=== PATIENT | male | born 1965 | race Caucasian/White ===

== ENCOUNTER 2016-06-02 07:50 | Day surgery (SDC) | payer OTHER ==
[2016-05-26 12:31] VITALS: BMI 45.0
--- NOTE | 2016-05-26 13:26 | PAT Medication Instructions ---
Service Date May 26, 2016. Current Home Medication List Albuterol Hfa (Ventolin Hfa), 2-4 PUFFS INH Q6H PRN for Shortness of Breath Aspirin (Aspirin Ec), 81 MG PO QAM Atorvastatin (Lipitor), 40 MG PO QAM Diltiazem Hcl (Cardizem), 120 MG PO QAM Pantoprazole (Protonix), 40 MG PO HS Warfarin Sodium (Warfarin Sodium), 2 TAB PO QPM Warfarin Sodium (Warfarin Sodium), 1 TAB PO QPM Medication Instructions For Your Scheduled Surgery - Check with surgeon/cardiology/prescribing physician: Warfarin Sodium (Warfarin Sodium), 2 TAB PO QPM Warfarin Sodium (Warfarin Sodium), 1 TAB PO QPM Aspirin (Aspirin Ec), 81 MG PO QAM - Take the following medications the morning of surgery with a sip of water: Diltiazem Hcl (Cardizem), 120 MG PO QAM Atorvastatin (Lipitor), 40 MG PO QAM Albuterol Hfa (Ventolin Hfa), 2-4 PUFFS INH Q6H PRN for Shortness of Breath ( bring with you to hospital morning of surgery) - Take the following medications as scheduled the night before surgery: Pantoprazole (Protonix), 40 MG PO HS Albuterol Hfa (Ventolin Hfa), 2-4 PUFFS INH Q6H PRN for Shortness of Breath If you have any questions please call us at [phone] (Bryanna Cosme PA-C) or [phone] or [phone]
[2016-05-26 14:04] LABS: BASO % 0.5 %; BASO ABS # 0.05 K/uL (0-0.2); COMPLETE YES; HEMATOCRIT 52.7 % (42-52); IG% 0.4 %; LYMPH % 32.2 %; MEAN CELL VOLUME 90.4 fL (80-100); MEAN CORPUSCULAR HEMOGLOBIN 31.7 pg (25-34); MEAN CORPUSCULAR HGB CONC 35.1 g/dl (32-36); MEAN PLATELET VOLUME 10.2 fL (7.4-10.4); MONO % 5.1 %; NEUT % 59.8 %; PLATELET COUNT 228 K/uL (130-400); RED BLOOD COUNT 5.83 M/uL (4.7-6.1); WHITE BLOOD COUNT 10.56 K/uL (4.8-10.8)
[2016-05-26 14:13] LABS: INR 1.9 (0.9-1.1); PARTIAL THROMBOPLASTIN RATIO 1.3; PROTHROMBIN TIME (PATIENT) 20.6 SECONDS (9.0-12.0)
[2016-05-26 14:18] LABS: URINE APPEARANCE CLEAR (CLEAR); URINE BILIRUBIN NEG (NEG); URINE COLOR YELLOW; URINE NITRITE NEG (NEG); URINE PH 6.5 (4.5-7.5); URINE SPECIFIC GRAVITY 1.008 (1.000-1.030); UROBILINOGEN NEG (NEG)
[2016-05-26 14:24] LABS: MANUAL MICROSCOPIC REQUIRED? NO; REVIEW REQ? NO
[2016-05-26 14:26] LABS: CREATININE 0.95 mg/dl (0.60-1.40)
--- NOTE | 2016-06-01 15:40 | HISTORY & PHYSICAL EXAMINATION ---
DATE OF ADMISSION: 06/02/2016 HISTORY OF PRESENT ILLNESS: The patient presents for left shoulder arthroscopy, rotator cuff repair. The patient is a 5 foot 10, 297, BMI of 42.61, white male with complaints of ongoing pain attributable to his left shoulder. He has been nonresponsive to conservative therapy including physical therapy, anti-inflammatories, relative rest, activity modification, injections, presents with exam consistent that of a torn rotator cuff. The patient is a 50-year-old white male. PAST MEDICAL HISTORY: Significant for hypercholesterolemia, sleep apnea, asthma, previous pulmonary embolus, irregular heartbeat, hepatitis B. FAMILY HISTORY: Otherwise unremarkable and noncontributory. SOCIAL HISTORY: The patient relates smoking up until 2016, stopped smoking in 2016. PAST SURGICAL HISTORY: Significant for previous right rotator cuff shoulder surgery, cholecystectomy, ACL, right knee tendinitis, right elbow, and heart catheterization. ALLERGIES: None. MEDICATIONS: Include albuterol inhaler as needed, Protonix 40 mg p.o. daily, Lipitor 40 mg p.o. daily, Coumadin alternating dose of 7 mg and 7.5 mg every other day, aspirin 81 mg, Cardizem 120 mg p.o. daily. Past medical history is otherwise unremarkable. See history of present illness for pertinent positives. PHYSICAL EXAMINATION: GENERAL: Reveals a very pleasant male with ongoing pain about his shoulder. He has been nonresponsive to conservative care presents today for arthroscopic evaluation. HEENT: Otherwise unremarkable, atraumatic, normocephalic. HEART: Regular at 70 beats per minute. No murmurs are noted. LUNGS: Clear. No rales, rhonchi, or wheezes noted. ABDOMEN: Soft, nontender, nondistended. Bowel sounds are present in all 4 quadrants. RECTAL: No rectal examination was performed. MUSCULOSKELETAL: Consistent with that of the left shoulder pain with rotator cuff tear and weakness. PLAN: For arthroscopy, arthroscopic rotator cuff repair, arthroscopic acromioplasty, possible distal clavicle excision pending findings at time of surgery, postoperative pain management, DVT prophylaxis, antibiotics as noted above.
[~2016-06-02] VITALS: Ht 177.8 cm; Wt 141.5 kg
--- NOTE | 2016-06-02 06:47 | History & Physical Bridge Note ---
H&P Re-Evaluation Bridge Note: I have examined the patient, reviewed the History & Physical and in the interval since the performance of the History & Physical I have noted the following changes of clinical significance: No changes noted
[~2016-06-02 07:50] MED LIST: ASPI81TA28 PO; ATOR-24 PO; CEFAZOLIN 3000 MG/65 ML D5W IV SCH; DILT120T8 PO; LACTATED RINGER'S 1000ML 1,000 ML IV SCH; PANT40TA PO; VNTHFA/IN INH; WARF-246 PO; WARF4TAB44 PO
[2016-06-02 08:10] VITALS: BP 111/70; PULSE 76; TEMP 36.6; O2SAT 94; BMI 45.0
[2016-06-02] MEDS ORDERED: ROPIVACAINE 0.5% 5 MG/ML 30 ML VIAL ONE (08:17)
[2016-06-02 08:20] VITALS: BP 111/70; PULSE 76; TEMP 36.6; O2SAT 94; Ht 177.8 cm; Wt 141.5 kg
[2016-06-02 08:49] LABS: INR 1.1 (0.9-1.1); PROTHROMBIN TIME (PATIENT) 11.4 SECONDS (9.0-12.0)
[2016-06-02] MEDS ORDERED: SUCCINYLCHOLINE CHLORIDE 20 MG/ML 10 ML VIAL IV ONE (09:20)
[2016-06-02] MEDS ORDERED: MIDAZOLAM HCL 1 MG/ML 2ML VIAL ONE ×2 (09:20→09:21)
[2016-06-02] MEDS ORDERED: ONDANSETRON INJ 2 MG/ML 2 ML VIAL ONE (09:20)
[2016-06-02] MEDS ORDERED: GLYCOPYRROLATE INJ 0.2 MG/ML VIAL ONE (09:20)
[2016-06-02] MEDS ORDERED: ROCURONIUM BROMIDE 10 MG/ML 5 ML VIAL ONE (09:20)
[2016-06-02] MEDS ORDERED: NEOSTIGMINE METHYLSULFATE 5 MG/5 ML SYR ONE (09:20)
[2016-06-02] MEDS ORDERED: PROPOFOL IV EMULSION 10 MG/ML 20 ML VIAL IV ONE (09:20)
[2016-06-02] MEDS ORDERED: DEXAMETHASONE SOD INJ 4 MG/ML VIAL ONE (09:20)
[2016-06-02] MEDS ORDERED: LIDOCAINE HCL 2% 2 ML VIAL (20MG/ML) ONE ×2 (09:20→12:38)
[2016-06-02] MEDS ORDERED: PHENYLEPHRINE HCL INJ 10 MG/ML VIAL ONE (09:20)
[2016-06-02] MEDS ORDERED: EpHEDrine SULFATE INJ 50 MG/ML AMP ONE (09:20)
[2016-06-02] MEDS ORDERED: FENTANYL CITRATE INJ 50 MCG/1 ML 2 ML VIAL ONE ×2 (09:20→09:21)
[2016-06-02] MEDS ORDERED: KETOROLAC TROMETHAMINE 30 MG/ML VIAL IV. PRN ×2 (10:15→12:30)
[2016-06-02] MEDS ORDERED: THROMBIN FOR SOLN 20000 UNIT KIT ONE (10:15)
[2016-06-02] MEDS ORDERED: ATROPINE SULFATE 0.1 MG/ML 5ML SYR IV PRN (10:15)
[2016-06-02] MEDS ORDERED: LABETALOL HCL IV 5 MG/ML 20ML IV PRN (10:15)
[2016-06-02] MEDS ORDERED: ONDANSETRON INJ 2 MG/ML 2 ML VIAL IV PRN ×2 (10:15→12:30)
[2016-06-02] MEDS ORDERED: BACITRACIN 50000 UNIT VIAL ONE (10:15)
[2016-06-02] MEDS ORDERED: FENTANYL CITRATE INJ 50 MCG/1 ML 2 ML VIAL IV PRN (10:15)
--- NOTE | 2016-06-02 12:14 | [facility] Post Operative Brief Note ---
Immediate Operative Summary Operative Date Jun 02, 2016. Pre-Operative Diagnosis tear rotator cuff AC djd impingement syndrome left shoulder Post-Operative Diagnosis same Procedure(s) Performed Left Shoulder Arthroscopic Subacromial Decompression, Distal Clavicle Excision, Rotator Cuff Repair Surgeon Dr. Kenton Wolf Miller Apprentice Surgeon(s) Rayshawn Benson PA-C Estimated Blood Loss 5cc Findings tear rotator cuff AC djd impingement syndrome Specimens none Complication(s) None Disposition Recovery Room / PACU
[2016-06-02] MEDS ORDERED: ACETAMINOPHEN 325 MG TAB PO PRN (12:30)
[2016-06-02] MEDS ORDERED: MoRPHine SULFATE 10 MG/ML CARP/VIAL IV PRN (12:30)
[2016-06-02] MEDS ORDERED: MoRPHine SULFATE 4 MG/ML 1 ML CARP\\VIAL IV PRN (12:30)
[2016-06-02] MEDS ORDERED: OXYCODONE HCL IR 5 MG TAB (IMMEDIATE RELEASE) PO PRN ×2 (12:30)
[2016-06-02] MEDS ORDERED: MoRPHine SULFATE 2 MG/ML CARP IV PRN (12:30)
[2016-06-02] MEDS ORDERED: OXYC-57 PO (12:31)
--- NOTE | 2016-06-02 12:34 | OPERATIVE REPORT ---
DATE OF OPERATION: 06/02/2016 PREOPERATIVE DIAGNOSES: Torn rotator cuff left shoulder, acromioclavicular degenerative joint disease, impingement syndrome. POSTOPERATIVE DIAGNOSIS: Same. PROCEDURE: Arthroscopy, arthroscopic acromioplasty, arthroscopic distal clavicle excision, arthroscopic repair of rotator cuff utilizing a double row technique 4.5 Healicoil, 4.5 footprint. SURGEON: Dr. Wolf. MACHINE FILLER SERVICER: Dr. Rayshawn Benson, who was necessary for prepping, draping, positioning, suture management and wound closure and was necessary for the case. ESTIMATED BLOOD LOSS: 5 mL. COMPLICATIONS: None. HISTORY OF PRESENT ILLNESS: The patient is a very pleasant 50-year-old male with complaints of ongoing pain attributed to his left shoulder. He has been nonresponsive to conservative therapy including physical therapy, anti-inflammatories, relative rest, activity modification and he presents for arthroscopic evaluation. DESCRIPTION OF PROCEDURE: After proper prepping and draping the left shoulder region, arthroscopic examination beginning in the region of the glenohumeral joint revealed the labrum to be intact. No evidence of labral tear was noted. Articular cartilage was noted to be in satisfactory and excellent condition. There was a full thickness rotator cuff tear measuring approximately 2 x 2 cm. Standard subacromial decompression was performed. Anterior inferior acromioplasty performed from changing morphology from a type 3 acromion to a type 1 acromion. Distal clavicle 1 cm was excised due AC joint DJD, rotator cuff having to mobilize and repaired in a double row technique utilizing a double-loaded 4.5 Healicoil and a footprint anchor. The rotator cuff tear repair was back in excellent condition and position. Subsequently, the skin was closed with 4-0 nylon. Sterile compression dressing was placed. The patient was taken to recovery room in stable condition. I attest to the content of the Intraoperative Record and any orders documented therein. Any exceptio ns are noted below.
--- NOTE | 2016-06-02 12:37 | Discharge Instructions ---
Discharge Instructions Date of Service Jun 02, 2016. Visit Reason for Visit: Left Shoulder Ac Jt Arthritis, Rotator Cuff Tear, Discharge Discharge Diagnosis / Problem: Left Shoulder AC Joint Arthritis/Rotator Cuff Tear Discharge Goals Goal(s): Decrease discomfort, Improve function Activity Recommendations Activity Limitations: per Instructions/Follow-up section Anesthesia . Post Anesthesia Instructions: If you have had General Anesthesia or IV Sedation: * Do not drive today. * Resume driving when surgeon permits. * Do not make important decisions or sign legal documents today. * Call surgeon for: 1. Temperature elevations greater than 101 degrees F. 2. Uncontrollable pain. 3. Excessive bleeding. 4. Persistent nausea and vomiting. 5. Medication intolerance (nausea, vomiting or rash). * For nausea and vomiting use only clear liquids such as: tea, soda, bouillon until nausea subsides, then gradually increase diet as tolerated. * If you have any concerns or questions, call your surgeon's office. If physician is unavailable and it is an emergency, call 911 or go to the nearest emergency room. . Instructions / Follow-Up Instructions / Follow-Up U DISCHARGE INSTRUCTIONS: ROTATOR CUFF REPAIR SELF CARE INSTRUCTIONS A. You are permitted to loosen your sling/immobilizer to move your elbow, wrist , and hand to prevent stiffness. You should use your well arm (good arm) to assist the operated extremity when trying to raise the arm away from the body, hygiene purposes. Do NOT actively try to use/engage your shoulder muscles in operative arm at this time. You should NOT do overhead activity, lifting, or attempt to reach behind your back. B. You may/may not be instructed to start Physical Therapy upon discharge depending upon the size and difficulty of the repair. You will be provided a prescription for therapy with specific restrictions, if needed, at time of discharge. C. At 48 hours post-operatively, you may change your dressing. (Leave white steri-strips intact if present). Use band-aids and change daily. You are allowed to shower at this time and get the incision area wet, but DO NOT soak or submerge incision area in water. (No baths, swimming pools, hot tubs) D. Do NOT apply soap or any ointment/lotions directly over incision. E. You may use ice as needed to operative shoulder SPECIAL CARE INSTRUCTIONS: VERY IMPORTANT TO READ AND REVIEW A. There are a few signs you need to watch for after you are home. Call [facility] at [phone] if you experience any of the following: a. Increased severe shoulder pain. Some pain is expected especially when you exercise b. Increased swelling in your shoulder or arm; pain or swelling in either upper extremity. (Note: swelling and stiffness is normal and expected for several weeks post op, depending on type of shoulder surgery you had). c. Any fluid or drainage from the incision; redness of the incision. d. Shortness of breath or chest pain. B. Please call [facility] at [phone] if you have any questions or concerns about your operation or recovery. C. Call your physician if: a. Temperature is greater than 101 degrees (F). b. Pain is not relieved by prescribed pain medications. c. Increase drainage or redness from incision. d. Unanswered questions or concerns. D. Pain Medication: a. You will be prescribed pain medication upon discharge that should last till your first post-operative appointment. b. If you experience nausea and/or skin rash, discontinue this medication and contact our office for an alternative medication. c. Caution- narcotic pain medication can cause constipation. FOLLOW UP VISIT: Please call [facility] at [phone] to schedule a follow up appointment 10-14 days from your surgery date. Diet Recommendations Recommended Home Diet: resume previous diet Procedures Procedures Performed: Left Shoulder Arthroscopic Subacromial Decompression, Distal Clavicle Excision, Rotator Cuff Repair Pending Studies Studies pending at discharge: no Medical Emergencies . Who to Call and When: Medical Emergencies: If at any time you feel your situation is an emergency, please call 911 immediately. . Non-Emergent Contact Non-Emergency issues call your: Surgeon Call Non-Emergent contact if: temperature is above 101.5, your pain is not controlled, your pain is worsening, wound has increased drainage, wound has increased redness . . "Provider Documentation" section prepared by Rayshawn Benson. [place] Drug Monitoring Program Search Results: patient reviewed within database, no issues identified
[2016-06-02 12:40] VITALS: PULSE 73; O2SAT 92
[2016-06-02 13:35] VITALS: BP 134/64; PULSE 73; TEMP 36.6; O2SAT 95
--- NOTE | 2016-06-02 13:39 | Anesthesiology Progress Note ---
Anesthesia Post Op Note Date & Time Jun 02, 2016 at 13:39 Vital Signs Pain Intensity: 0 Vital Signs Past 12 Hours Date Time Temp Pulse Resp B/P Pulse Ox O2 Delivery O2 Flow Rate FiO2 06/02/16 13:10 36.2 70 18 115/69 93 Nasal Cannula 3 06/02/16 13:05 74 18 121/64 93 Nasal Cannula 3 06/02/16 12:55 74 18 112/70 97 Diffusion Mask 10 06/02/16 12:45 90 18 165/90 97 Diffusion Mask 10 06/02/16 12:40 73 20 92 Diffusion Mask 9.0 06/02/16 12:35 96 18 136/87 91 Diffusion Mask 10 06/02/16 12:25 36.7 96 18 111/79 95 Diffusion Mask 10 06/02/16 08:20 36.6 76 20 111/70 94 Room Air 06/02/16 08:10 36.6 76 20 111/70 94 Room Air Notes Mental Status: alert / awake / arousable, participated in evaluation Pt Amnestic to Procedure: Yes Nausea / Vomiting: adequately controlled Pain: adequately controlled Airway Patency, RR, SpO2: stable & adequate BP & HR: stable & adequate Hydration State: stable & adequate Anesthetic Complications: no major complications apparent
[2016-06-02] MEDS ORDERED: LARYING-O-JET KIT (LTA) EXT ONE ×2 (13:52)
[2016-06-02 14:05] VITALS: BP 129/65; PULSE 75; TEMP 36.5; O2SAT 96
[2016-06-02 14:35] VITALS: BP 134/76; PULSE 87; TEMP 36.5; O2SAT 93
--- NOTE | 2016-06-03 12:42 | EDITING REQUIRED CODING QUERY ---
CQ ROTATOR CUFF TEAR To promote full compliance with coding requirements relating to patient care, provider participation is requested in all cases of kindergarten classroom teacher uncertainty. Please assist us with the question(s) below: Please Specify the type of Rotator Cuff Tear by placing an "X" within the parenthesis (). If other please document type. x(x) Current/Traumatic () Degenerative WAS THIS AN INJURY OR NONTRAUMATIC () Nontraumatic Complete () Nontraumatic Partial () Other:(Please Specify) Thank you Marilyn Blanca
== END 2016-06-02 14:50 | disposition home or self-care (01) ==
LOC: C.ACU 07:50
PROVIDERS: ATTEND Orthopaedic Surgery
DX: S46.012A Strain of muscle(s) and tendon(s) of the rotator cuff of left shoulder, initial encounter (principal); M75.42 Impingement syndrome of left shoulder; X58.XXXA Exposure to other specified factors, initial encounter; Y92.89 Other specified places as the place of occurrence of the external cause; M19.012 Primary osteoarthritis, left shoulder; Z87.891 Personal history of nicotine dependence

== ENCOUNTER 2017-01-24 19:13 | Emergency (ER) | payer OTHER ==
[~2017-01-24] VITALS: Ht 177.8 cm; Wt 145.2 kg
[~2017-01-24 19:13] MED LIST changes: -CEFAZOLIN 3000 MG/65 ML D5W IV SCH; -LACTATED RINGER'S 1000ML 1,000 ML IV SCH
[2017-01-24 19:15] VITALS: Ht 177.8 cm; Wt 145.2 kg
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
[2017-01-24 19:39] VITALS: O2SAT 94
--- NOTE | 2017-01-24 19:47 | DIAGNOSTIC IMAGING REPORT ---
CHEST ONE VIEW PORTABLE CLINICAL HISTORY: EVALUATE RESPIRATORY DISTRESS.DYSPNEA COMPARISON STUDY: 07/03/2013 FINDINGS: Moderate stable cardiomegaly. Increased interstitial markings throughout both lungs. Diaphragms are smooth. There are no consolidative infiltrates. IMPRESSION: Moderate stable cardiomegaly. Diffuse bilateral interstitial prominence potentially indicating early interstitial phase of congestive failure The above report was generated using voice recognition software. It may contain grammatical, syntax or spelling errors. Electronically signed by: Anupam Love M.D. 01/24/2017 7:45 PM Dictated Date/Time: 01/24/2017 7:44 PM
[2017-01-24 20:04] LABS: MANUAL MICROSCOPIC REQUIRED? YES; URINE APPEARANCE CLEAR (CLEAR); URINE BILIRUBIN NEG (NEG); URINE COLOR YELLOW; URINE NITRITE NEG (NEG); URINE SPECIFIC GRAVITY <= 1.005 (1.000-1.030); UROBILINOGEN NEG (NEG)
[2017-01-24 20:05] LABS: REVIEW REQ? NO
[2017-01-24 20:06] LABS: BASO % 0.3 %; BASO ABS # 0.03 K/uL (0-0.2); COMPLETE YES; EOS % 1.7 %; HEMATOCRIT 49.1 % (42-52); IG% 0.2 %; LYMPH % 28.3 %; MEAN CELL VOLUME 88.5 fL (80-100); MEAN CORPUSCULAR HEMOGLOBIN 30.6 pg (25-34); MEAN CORPUSCULAR HGB CONC 34.6 g/dl (32-36); MEAN PLATELET VOLUME 9.8 fL (7.4-10.4); MONO % 5.3 %; NEUT % 64.2 %; PLATELET COUNT 229 K/uL (130-400); RED BLOOD COUNT 5.55 M/uL (4.7-6.1); WHITE BLOOD COUNT 8.83 K/uL (4.8-10.8)
[2017-01-24 20:17] LABS: INR 2.1 (0.9-1.1); PARTIAL THROMBOPLASTIN RATIO 1.3; PROTHROMBIN TIME (PATIENT) 23.2 SECONDS (9.0-12.0)
[2017-01-24 20:19] LABS: URINE BACTERIA NEG (NEG); URINE RBC 0-4 /hpf (0-4); URINE WBC 0 /hpf (0-5)
[2017-01-24 20:22] LABS: ALT/SGPT 44 U/L (12-78); BLOOD UREA NITROGEN 13 mg/dl (7-18); BUN/CREATININE RATIO 10.3 (10-20); CALCIUM 8.9 mg/dl (8.5-10.1); CARBON DIOXIDE 30 mmol/L (21-32); CHLORIDE 101 mmol/L (98-107); CREATININE 1.21 mg/dl (0.60-1.40); GLUCOSE 183 mg/dl (70-99); POTASSIUM 4.1 mmol/L (3.5-5.1); SODIUM 136 mmol/L (136-145)
[2017-01-24] MEDS ORDERED: POTA20TA16 PO (20:24)
[2017-01-24] MEDS ORDERED: METF1TAB53 PO (20:24)
[2017-01-24] MEDS ORDERED: METF500T5 PO (20:24)
[2017-01-24] MEDS ORDERED: WARF6TAB5 PO (20:24)
[2017-01-24] MEDS ORDERED: METO5TAB25 PO (20:25)
[2017-01-24] MEDS ORDERED: FURO80TA63 PO (20:25)
[2017-01-24] MEDS ORDERED: DOCU100C31 PO (20:26)
[2017-01-24 20:27] LABS: ALB/GLOB RATIO 0.8 (0.9-2); ALKALINE PHOSPHATASE 74 U/L (45-117); AST/SGOT 13 U/L (15-37)
[2017-01-24 20:33] VITALS: BP 143/92; PULSE 82; TEMP 37; O2SAT 95
== END 2017-01-24 20:49 | disposition home or self-care (01) ==
LOC: EDBD 19:13 → C.EDA 19:15
DX: R07.2 Precordial pain (principal); Z95.5 Presence of coronary angioplasty implant and graft; G47.30 Sleep apnea, unspecified; F17.210 Nicotine dependence, cigarettes, uncomplicated; Z79.82 Long term (current) use of aspirin; Z79.01 Long term (current) use of anticoagulants; Z79.899 Other long term (current) drug therapy